=== PATIENT | male | born 1975 | race Caucasian/White ===

== ENCOUNTER 2019-01-03 18:17 | Emergency (ER) | payer SELFPAY ==
[2019-01-03] MEDS ORDERED: Sodium Chloride 0.9% 10 ML Syringe FLUSH PRN (18:51)
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
[2019-01-03] MEDS: Sodium Chloride 0.9% 1,000 ML IV SCH (19:27)
[2019-01-03] MEDS: Iopamidol 755 Mg/ML 100 ML Bottle IV ONE (20:03)
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
== END 2019-01-03 20:37 ==
LOC: FB.ED 18:17
DX: F10.120 Alcohol abuse with intoxication, uncomplicated (principal); Y90.8 Blood alcohol level of 240 mg/100 ml or more; V89.2XXA Person injured in unspecified motor-vehicle accident, traffic, initial encounter
CPT/HCPCS: 36415; 70450; 71260; 72125; 74177; 80053; 80305-QW; 81001; 83690; 85025; 96360; 99284; 99284-25; G0480; J7030; Q9967